=== PATIENT | female | born 1975 | race Caucasian/White ===

== ENCOUNTER 2020-08-31 16:12 | Emergency (ER) | payer MEDICAID ==
[~2020-08-31] VITALS: Ht 154.9 cm; Wt 95.5 kg
[2020-08-31 16:21] VITALS: BP 145/86
== END 2020-08-31 17:17 | disposition home or self-care (01) ==
LOC: EMS 16:16
DX: H66.92 Otitis media, unspecified, left ear (principal); Z88.1 Allergy status to other antibiotic agents
CPT/HCPCS: 99283

== ENCOUNTER 2022-10-27 15:22 | Emergency (ER) | payer MEDICAID ==
[~2022-10-27] VITALS: Ht 153 cm; Wt 93.6 kg
[2022-10-27 15:27] VITALS: TEMP 97.4
[2022-10-27] MEDS ORDERED: PERTUSS(ACELL),DIPH,TET VAC/PF 0.5 ML SYRINGE IM. ONE (15:45)
[2022-10-27 16:00] VITALS: BP 145/84; PULSE 104; RESP 17
== END 2022-10-27 16:17 | disposition home or self-care (01) ==
LOC: EMS 15:23
DX: S01.81XA Laceration without foreign body of other part of head, initial encounter (principal); S09.90XA Unspecified injury of head, initial encounter; G80.9 Cerebral palsy, unspecified; E11.9 Type 2 diabetes mellitus without complications; F15.90 Other stimulant use, unspecified, uncomplicated; Z98.890 Other specified postprocedural states; Z99.3 Dependence on wheelchair; W05.0XXA Fall from non-moving wheelchair, initial encounter; Y93.89 Activity, other specified; Y92.89 Other specified places as the place of occurrence of the external cause; Y99.8 Other external cause status
CPT/HCPCS: 90471; 90715; 99283

== ENCOUNTER 2022-12-09 16:24 | Emergency (ER) | payer MEDICAID ==
[~2022-12-09] VITALS: Ht 152.4 cm; Wt 97.7 kg
[2022-12-09 16:30] VITALS: BP 143/94; PULSE 108; RESP 18; TEMP 97.9
== END 2022-12-09 17:45 | disposition left against medical advice (07) ==
LOC: EMS 16:30
DX: M25.571 Pain in right ankle and joints of right foot (principal); Z53.21 Procedure and treatment not carried out due to patient leaving prior to being seen by health care provider
CPT/HCPCS: 99281; Z7502